=== PATIENT | female | born 1965 | race Caucasian/White ===

== ENCOUNTER 2020-03-13 12:18 | Emergency (ER) | payer OTHER ==
[~2020-03-13] VITALS: Ht 152.4 cm; Wt 86.2 kg
[2020-03-13 12:20] VITALS: Ht 152.4 cm; Wt 86.2 kg
[2020-03-13 17:19] VITALS: BP 151/79
== END 2020-03-13 17:19 | disposition home or self-care (01) ==
LOC: ED 12:18
DX: U07.1 COVID-19 (principal); I10 Essential (primary) hypertension
CPT/HCPCS: M0239; Q0239; U0003